=== PATIENT | male | born 1945 | race Caucasian/White ===

== ENCOUNTER 2016-07-25 17:52 | Emergency (ER) | payer BC, OTHER ==
[~2016-07-25] VITALS: Ht 205.7 cm; Wt 120.2 kg
[2016-07-25 18:14] VITALS: BP 149/79
== END 2016-07-25 20:13 | disposition home or self-care (01) ==
LOC: ER 18:08
DX: S91.205A Unspecified open wound of left lesser toe(s) with damage to nail, initial encounter (principal); W45.8XXA Other foreign body or object entering through skin, initial encounter; Y93.89 Activity, other specified; Y99.8 Other external cause status; Y92.89 Other specified places as the place of occurrence of the external cause